=== PATIENT | female | born 1995 | race Hispanic/Latino ===

== ENCOUNTER 2018-05-06 12:14 | Emergency (ER) | payer OTHER ==
[~2018-05-06] VITALS: Ht 147.3 cm; Wt 59.0 kg
[2018-05-06 12:40] LABS: BASOPHILS % 0.3 % (0.0-1.0); EOSINOPHILS # (AUTO) 0.1 (0.0-0.4); EOSINOPHILS % 1.4 % (0.0-6.0); HEMOGLOBIN 13.3 g/dL (12.0-16.0); LYMPHOCYTES # (AUTO) 3.4 (1.0-3.2); LYMPHOCYTES % 46.2 % (18.0-39.1); MEAN CORPUSCULAR HEMOGLOBIN 30.2 pg (28-32); MEAN CORPUSCULAR HGB CONC 34.1 g/dL (31-35); MEAN CORPUSCULAR VOLUME 88.6 fL (81-99); MONOCYTES # (AUTO) 0.4 (0.2-0.8); MONOCYTES % 6.1 % (4.4-11.3); NEUTROPHILS # (AUTO) 3.3 (2.1-6.9); NEUTROPHILS % 45.9 % (38.7-80.0); PLATELET COUNT 188 x10e3/uL (140-360)
[2018-05-06 12:59] LABS: ALANINE AMINOTRANSFERASE 38 IU/L (0-55); ALBUMIN 3.1 g/dL (3.5-5.0); ALBUMIN/GLOBULIN RATIO 0.9 (0.8-2.0); ALKALINE PHOSPHATASE 71 IU/L (40-150); ANION GAP 12.7 mmol/L (8-16); BLOOD UREA NITROGEN 11 mg/dL (7-26); BUN/CREATININE RATIO 20 (6-25); CALCIUM 9.2 mg/dL (8.4-10.2); CARBON DIOXIDE 24 mmol/L (22-29); CHLORIDE 107 mmol/L (98-107); CREATININE, SERUM 0.55 mg/dL (0.57-1.11); EST GLOMERULAR FILTRATION RATE > 60 ML/MIN (60-); GLUCOSE 91 mg/dL (74-118); POTASSIUM 3.7 mmol/L (3.5-5.1); SODIUM 140 mmol/L (136-145)
[2018-05-06 13:13] LABS: CLARITY,URINE HAZY (CLEAR); COLOR,URINE YELLOW (YELLOW)
[2018-05-06 13:14] LABS: BILIRUBIN,URINE NEGATIVE (NEGATIVE); KETONES,URINE NEGATIVE (NEGATIVE); LEUKOCYTE ESTERASE ,URINE NEGATIVE (NEGATIVE); NITRITE,URINE NEGATIVE (NEGATIVE); PROTEIN,URINE DIPSTICK 2+ (NEGATIVE); URINE UROBILINOGEN 0.2 mg/dL (0.2 - 1)
[2018-05-06 13:28] LABS: BACTERIA,URINE MANY /HPF; EPITHELIAL CELLS,URINE FEW /LPF
--- NOTE | 2018-05-06 13:31 | Diagnostic Imaging Report ---
EXAMINATION: PA and lateral views of the chest. COMPARISON: None CLINICAL HISTORY: Shortness of breath DISCUSSION: Lines/tubes: None. Lungs: The lungs are well inflated and clear. No pneumonia or pulmonary edema. Pleura: No pleural effusion or pneumothorax. Heart and mediastinum: The cardiomediastinal silhouette is normal. Bones and soft tissues: No acute bony abnormalities. IMPRESSION: No acute cardiopulmonary abnormalities. Signed by: Dr. Stanislav Robles M.D. on 05/06/2018 1:28 PM
[2018-05-06 14:16] VITALS: BP 97/61
== END 2018-05-06 14:12 | disposition home or self-care (01) ==
LOC: ER 12:14
DX: R10.33 Periumbilical pain (principal); E88.09 Other disorders of plasma-protein metabolism, not elsewhere classified
CPT/HCPCS: 36415; 71046; 80053; 81001; 83880; 84702; 85025; 99284

== ENCOUNTER 2018-07-18 08:17 | Emergency (ER) | payer OTHER ==
[~2018-07-18] VITALS: Ht 147.3 cm; Wt 59.0 kg
--- OUTSIDE RECORDS SUMMARY | 2018-07-18 08:20 | XMS REPORT ---
Author Author [facility] Address Unknown Phone Unavailable Care Team Providers Care Cms Expert Name Role Phone Renetta CUEVAS Unavailable Unavailable Problems This patient has no known problems. Allergies, Adverse Reactions, Alerts This patient has no known allergies or adverse reactions. Medications This patient has no known medications. Results Test Description Test Time Test Comments Text Results Atomic Results Result Comments CHEST 2 VIEWS 2018-05-06 13:27:00 [place] [id number] Patient Name: JESSICA VERAS MR #: [id number] : 1995 Age/Sex: 22/F Req #: [id number] Adm Physician: Ordered by: MARTÍN GILLESPIE NP Report #: [id number] Location: ER Room/Bed: Procedure: [id number] DX/CHEST 2 VIEWS Exam Date: Exam Time: REPORT STATUS: Signed EXAMINATION: PA and lateral views of the chest. COMPARISON: None CLINICAL HISTORY: Shortness of breath DISCUSSION: Lines/tubes: None. Lungs: The lungs are well inflated and clear. No pneumonia or pulmonary edema. Pleura: No pleural effusion or pneumothorax. Heart and mediastinum: The cardiomediastinal silhouette is normal. Bones and soft tissues: No acute bony abnormalities. IMPRESSION: No acute cardiopulmonary abnormalities. Signed by: Dr. Farhat Fernandez M.D. on 05/06/2018 1:28 PM Dictated By: FARHAT FERNANDEZ MD [id number] Transcribed By: MICHELLE on 05/06/18 1328 COPY TO: MARTÍN GILLESPIE NP
[2018-07-18 09:21] LABS: BASOPHILS % 0.2 % (0.0-1.0); HEMATOCRIT 40.4 % (34.2-44.1); HEMOGLOBIN 13.7 g/dL (12.0-16.0); LYMPHOCYTES # (AUTO) 1.2 (1.0-3.2); LYMPHOCYTES % 19.2 % (18.0-39.1); MEAN CORPUSCULAR HEMOGLOBIN 30.2 pg (28-32); MEAN CORPUSCULAR HGB CONC 33.9 g/dL (31-35); MONOCYTES # (AUTO) 0.1 (0.2-0.8); MONOCYTES % 1.8 % (4.4-11.3); NEUTROPHILS # (AUTO) 4.8 (2.1-6.9); NEUTROPHILS % 78.3 % (38.7-80.0); PLATELET COUNT 193 x10e3/uL (140-360); RED BLOOD COUNT 4.54 x10e6/uL (3.6-5.1); RED CELL DISTRIBUTION WIDTH 12.6 % (11.7-14.4)
[2018-07-18 09:40] LABS: ALANINE AMINOTRANSFERASE 24 IU/L (0-55); ALBUMIN 1.6 g/dL (3.5-5.0); ALBUMIN/GLOBULIN RATIO 0.5 (0.8-2.0); ALKALINE PHOSPHATASE 80 IU/L (40-150); ANION GAP 10.8 mmol/L (8-16); BLOOD UREA NITROGEN 11 mg/dL (7-26); BUN/CREATININE RATIO 21 (6-25); CALCIUM 8.2 mg/dL (8.4-10.2); CARBON DIOXIDE 26 mmol/L (22-29); CHLORIDE 101 mmol/L (98-107); CREATININE, SERUM 0.52 mg/dL (0.57-1.11); EST GLOMERULAR FILTRATION RATE > 60 ML/MIN (60-); GLUCOSE 129 mg/dL (74-118); MAGNESIUM 1.4 MG/DL (1.3-2.1); PHOSPHORUS 4.6 MG/DL (2.3-4.7); POTASSIUM 3.8 mmol/L (3.5-5.1); SODIUM 134 mmol/L (136-145)
[2018-07-18] MEDS ORDERED: PREDNISONE20 MG PO (10:53)
[2018-07-18] MEDS ORDERED: BUMETANIDE1 MG PO (10:53)
[2018-07-18 11:23] LABS: CLARITY,URINE CLEAR (CLEAR); COLOR,URINE YELLOW (YELLOW)
[2018-07-18 11:24] LABS: KETONES,URINE NEGATIVE (NEGATIVE); LEUKOCYTE ESTERASE ,URINE NEGATIVE (NEGATIVE); NITRITE,URINE NEGATIVE (NEGATIVE); PROTEIN,URINE DIPSTICK 2+ (NEGATIVE); URINE UROBILINOGEN 0.2 mg/dL (0.2 - 1)
[2018-07-18 11:25] LABS: BILIRUBIN,URINE NEGATIVE (NEGATIVE)
[2018-07-18 11:35] LABS: BACTERIA,URINE MANY /HPF; EPITHELIAL CELLS,URINE FEW /LPF; MUCUS,URINE MANY (RARE)
== END 2018-07-18 12:57 | disposition home or self-care (01) ==
LOC: ER 08:17
DX: N04.9 Nephrotic syndrome with unspecified morphologic changes (principal)
CPT/HCPCS: 36415; 80053; 81001; 83735; 84100; 85025; 99284

== ENCOUNTER 2019-04-13 17:04 | Emergency (ER) | payer SELFPAY ==
[~2019-04-13 17:04] MED LIST: BUMETANIDE1 MG PO; PREDNISONE20 MG PO
--- OUTSIDE RECORDS SUMMARY | 2019-04-13 17:07 | XMS REPORT | Clinical Summary ---
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 08/22/2018 Discontinued (Stop Taking at Discharge) predniSONE (DELTASONE) 20 Take 10 mg by 0 mg tablet mouth 4 (four) times a day. 08/16/2018 Discontinued tretinoin (VESANOID) 10 Take by mouth 0 mg chemo capsule 2 (two) times a day. 08/22/2018 Discontinued (Stop Taking at Discharge) azithromycin (ZITHROMAX) Take 250 mg 0 250 MG tablet by mouth daily. Take 2 tablets the first day, then 1 tablet daily for 4 days. 09/21/2018 ondansetron ODT Take 1 tablet 30 tablet 0 (ZOFRAN-ODT) 4 MG (4 mg total) 9 disintegrating tablet by mouth every 8 (eight) hours as needed for nausea or vomiting for up to 30 days. 09/21/2018 atorvastatin (LIPITOR) 40 Take 1 tablet 30 tablet 0 MG tablet (40 mg total) 9 by mouth nightly for 30 days. 09/22/2018 cholestyramine (QUESTRAN) Take 1 packet 30 packet 0 4 gram packet by mouth 9 daily for 30 days. 09/22/2018 predniSONE (DELTASONE) 5 Take 5 150 tablet 0 mg tablet tablets (25 9 mg total) by mouth daily for 30 days. Active Problems Problem Noted Date Nephrotic syndrome 08/16/2018 Encounters Care Team Description Date Type Specialty Saeed Strickland MD ESOPHAGOGASTRODUODENOSCOPY (EGD) 08/18/2018 Surgery Gastroenterology Bhaskar Gonzalez MD 08/18/2018 Anesthesia Gastroenterology Event Pato Yuan NP-C Yerramadha, Muralidhar Reddy, MD Nephrotic syndrome (Primary Dx); Abdominal swelling; Acne vulgaris; Other acute gastritis without hemorrhage; Acute pancreatitis without infection or necrosis, unspecified pancreatitis type 08/15/2018 [facility] General Internal Medicine - Encounter 08/22/2018 after 04/12/2018 Social History Date Tobacco Use Types Packs/Day Years Used Never Smoker Smokeless Tobacco: Never Used Drinks/Week oz/Week Comments Alcohol Use No Alcohol Habits Answer Date Recorded How often do you have a drink containing alcohol? Never 08/16/2018 How many drinks containing alcohol do you have on Not asked a typical day when you are drinking? How often do you have six or more drinks on one Not asked occasion? Sex Assigned at Date Recorded Not on file Industry Job Start Date Occupation Not on file Not on file Not on file Travel End Travel History Travel Start No recent travel history available. Last Filed Vital Signs Reading Time Taken Comments Vital Sign 101/58 08/22/2018 4:19 PM DIGITAL STRATEGY MANAGER Blood Pressure 75 08/22/2018 4:19 PM DIGITAL STRATEGY MANAGER Pulse 35.6 C (96 F) 08/22/2018 4:19 PM DIGITAL STRATEGY MANAGER Temperature 16 08/22/2018 4:19 PM DIGITAL STRATEGY MANAGER Respiratory Rate 95% 08/22/2018 4:19 PM DIGITAL STRATEGY MANAGER Oxygen Saturation - - Inhaled Oxygen Concentration 66.7 kg (147 lb) 08/16/2018 7:45 PM DIGITAL STRATEGY MANAGER Weight 144.8 cm (4' 9") 08/16/2018 7:45 PM DIGITAL STRATEGY MANAGER Height 31.81 08/16/2018 7:45 PM DIGITAL STRATEGY MANAGER Body Mass Index Plan of Treatment Health Maintenance Due Date Last Done Comments CHLAMYDIA SCREENING 2012 CERVICAL CANCER SCREENING 2017 INFLUENZA VACCINE 03/09/2019 Procedures Comments Procedure Name Priority Date/Time Associated Diagnosis PROTEIN, URINE, RANDOM Routine 08/22/2018 3:48 PM DIGITAL STRATEGY MANAGER CREATININE LEVEL, URINE, Routine 08/22/2018 RANDOM 3:48 PM DIGITAL STRATEGY MANAGER ESTIMATED GFR Routine 08/22/2018 5:42 AM DIGITAL STRATEGY MANAGER PHOSPHORUS LEVEL Routine 08/22/2018 5:42 AM DIGITAL STRATEGY MANAGER MAGNESIUM LEVEL Routine 08/22/2018 5:42 AM DIGITAL STRATEGY MANAGER HC COMPLETE BLD COUNT Routine 08/22/2018 W/AUTO DIFF 5:42 AM DIGITAL STRATEGY MANAGER BASIC METABOLIC PANEL Routine 08/22/2018 5:42 AM DIGITAL STRATEGY MANAGER US NEEDLE BIOPSY Routine 08/19/2018 12:01 PM DIGITAL STRATEGY MANAGER SURGICAL PATHOLOGY Routine 08/19/2018 REQUEST 11:20 AM DIGITAL STRATEGY MANAGER ESTIMATED GFR Routine 08/19/2018 4:56 AM DIGITAL STRATEGY MANAGER BASIC METABOLIC PANEL Routine 08/19/2018 4:56 AM DIGITAL STRATEGY MANAGER HC COMPLETE BLD COUNT Routine 08/19/2018 W/AUTO DIFF 4:56 AM DIGITAL STRATEGY MANAGER PROTHROMBIN TIME WITH INR Routine 08/19/2018 4:56 AM DIGITAL STRATEGY MANAGER PARTIAL THROMBOPLASTIN Routine 08/19/2018 TIME (PTT) 4:56 AM DIGITAL STRATEGY MANAGER SURGICAL PATHOLOGY Routine 08/18/2018 REQUEST 2:06 PM DIGITAL STRATEGY MANAGER ESOPHAGOGASTRODUODENOSCOP 08/18/2018 ABDOMINAL PAIN Y (EGD) 2:02 PM DIGITAL STRATEGY MANAGER ESTIMATED GFR Routine 08/18/2018 4:24 AM DIGITAL STRATEGY MANAGER LIPASE LEVEL Routine 08/18/2018 4:24 AM DIGITAL STRATEGY MANAGER HC COMPLETE BLD COUNT Routine 08/18/2018 W/AUTO DIFF 4:24 AM DIGITAL STRATEGY MANAGER COMPREHENSIVE METABOLIC Routine 08/18/2018 PANEL 4:24 AM DIGITAL STRATEGY MANAGER PROTEIN, URINE, RANDOM Routine 08/17/2018 9:52 AM DIGITAL STRATEGY MANAGER CREATININE LEVEL, URINE, Routine 08/17/2018 RANDOM 9:52 AM DIGITAL STRATEGY MANAGER SODIUM LEVEL, URINE, Routine 08/17/2018 RANDOM 9:52 AM DIGITAL STRATEGY MANAGER ESTIMATED GFR Routine 08/17/2018 6:12 AM DIGITAL STRATEGY MANAGER LIPASE LEVEL Routine 08/17/2018 6:12 AM DIGITAL STRATEGY MANAGER HC COMPLETE BLD COUNT Routine 08/17/2018 W/AUTO DIFF 6:12 AM DIGITAL STRATEGY MANAGER COMPREHENSIVE METABOLIC Routine 08/17/2018 PANEL 6:12 AM DIGITAL STRATEGY MANAGER US ABDOMEN COMPLETE Routine 08/17/2018 6:01 AM DIGITAL STRATEGY MANAGER ECG ED PRELIMINARY Routine 08/16/2018 INTERPRETATION 11:31 PM DIGITAL STRATEGY MANAGER US RENAL Routine 08/16/2018 4:44 PM DIGITAL STRATEGY MANAGER DNA AB SCREEN Routine 08/16/2018 11:34 AM DIGITAL STRATEGY MANAGER COMPLEMENT ACTIVITY, Routine 08/16/2018 TOTAL 11:34 AM DIGITAL STRATEGY MANAGER C4 COMPLEMENT COMPONENT Routine 08/16/2018 11:34 AM DIGITAL STRATEGY MANAGER C3 COMPLEMENT COMPONENT Routine 08/16/2018 11:34 AM DIGITAL STRATEGY MANAGER ANAMIKA Routine 08/16/2018 11:34 AM DIGITAL STRATEGY MANAGER PARTIAL THROMBOPLASTIN Routine 08/16/2018 TIME (PTT) 11:34 AM DIGITAL STRATEGY MANAGER PROTHROMBIN TIME WITH INR Routine 08/16/2018 11:34 AM DIGITAL STRATEGY MANAGER ESTIMATED GFR Routine 08/16/2018 6:20 AM DIGITAL STRATEGY MANAGER COMPREHENSIVE METABOLIC Routine 08/16/2018 PANEL 6:20 AM DIGITAL STRATEGY MANAGER HC COMPLETE BLD COUNT Routine 08/16/2018 W/AUTO DIFF 6:20 AM DIGITAL STRATEGY MANAGER URINALYSIS SCREEN AND Routine 08/16/2018 MICROSCOPY, WITH REFLEX 12:21 AM DIGITAL STRATEGY MANAGER TO CULTURE ECG 12-LEAD STAT 08/15/2018 11:06 PM DIGITAL STRATEGY MANAGER LIPID PANEL STAT 08/15/2018 11:00 PM DIGITAL STRATEGY MANAGER ESTIMATED GFR STAT 08/15/2018 10:55 PM DIGITAL STRATEGY MANAGER LIPASE LEVEL STAT 08/15/2018 10:55 PM DIGITAL STRATEGY MANAGER HCG QUALITATIVE, SERUM STAT 08/15/2018 SCREEN 10:55 PM DIGITAL STRATEGY MANAGER B NATRIURETIC PEPTIDE STAT 08/15/2018 10:55 PM DIGITAL STRATEGY MANAGER TROPONIN STAT 08/15/2018 10:55 PM DIGITAL STRATEGY MANAGER CREATINE KINASE, TOTAL STAT 08/15/2018 (CPK) 10:55 PM DIGITAL STRATEGY MANAGER COMPREHENSIVE METABOLIC STAT 08/15/2018 PANEL 10:55 PM DIGITAL STRATEGY MANAGER HC COMPLETE BLD COUNT STAT 08/15/2018 W/AUTO DIFF 10:55 PM DIGITAL STRATEGY MANAGER XR CHEST 1 VW PORTABLE STAT 08/15/2018 10:13 PM DIGITAL STRATEGY MANAGER after 04/12/2018 Results * Protein, urine, random (08/22/2018 3:48 PM DIGITAL STRATEGY MANAGER) Only the most recent of 2 results within the time period is included. Protein, urine 177 mg/dL [facility] Specimen Urine Performing Organization Address [facility] Cent[facility] Phone Number [address] [place] [address] PATHOLOGY AND GENOMIC MEDICINE [address] * Creatinine level, urine, random (08/22/2018 3:48 PM DIGITAL STRATEGY MANAGER) Only the most recent of 2 results within the time period is included. Creatinine, 21 mg/dL [place] urine, [facility] Specimen Urine Performing Organization Address City/[facility] Cent[facility]ode Phone Number [facility] DEPARTMENT [id number] [place] [address] [place] [address] PATHOLOGY AND GENOMIC MEDICINE [address] * Estimated GFR (08/22/2018 5:42 AM DIGITAL STRATEGY MANAGER) Only the most recent of 6 results within the time period is included. Pathologist [facility] Estimated GFR >=90 mL/min/1.73 m2 [place] Comment: [facility] rpretation G1 >=90 Normal or high G2 60-89Mildly decreased [id number] Mildly to moderately decreased C3w16-99 Moderately to severely decreased G4 15-29Severely decreased G5 <15Kidney failure The eGFR was calculated using the Chronic Kidney Disease Epidemiology Collaboration (CKD-EPI) equation. Interpretation is based on recommendations of the National Kidney Foundation-Kidney Disease Outcomes Quality Initiative (NKF-KDOQI) published in 2014. Specimen Plasma specimen Performing Organization Address City/State/Zipcode Phone Number [facility] DE[place]MENT [place] [id number] [place] [address] [place] [address] PATHOLOGY AND GENOMIC MEDICINE [facility] [address] [place] [address] * CBC with platelet and differential (08/22/2018 5:42 AM DIGITAL STRATEGY MANAGER) Only the most recent of 6 results within the time period is included. Pathologist [facility] WBC 11.72 (H) 4.50 - 11.00 k/uL [facility] RBC 4.06 (L) 4.20 - 5.50 m/uL [facility] HGB 12.3 12.0 - 16.0 g/dL [facility] HCT 36.4 (L) 37.0 - 47.0 % [facility] MCV 89.7 82.0 - 100.0 fL [facility] MCH 30.3 27.0 - 34.0 pg [facility] MCHC 33.8 31.0 - 37.0 g/dL [facility] RDW - SD 40.4 37.0 - 55.0 fL [facility] MPV 11.3 8.8 - 13.2 fL [facility] Platelet count 303 150 - 400 k/uL [facility] Nucleated RBC 0.00 /100 WBC [facility] Neutrophils 45.9 39.0 - 69.0 % [facility] Lymphocytes 46.2 (H) 25.0 - 45.0 % [facility] Monocytes 6.1 0.0 - 10.0 % [facility] Eosinophils 1.2 0.0 - 5.0 % [facility] Basophils 0.3 0.0 - 1.0 % [facility] Specimen Blood Performing Organization Address [facility] Centercode Phone Number [address] [place] [address] PATHOLOGY AND [facility] MEDICINE [address] * Phosphorus level (08/22/2018 5:42 AM DIGITAL STRATEGY MANAGER) Pathologist [facility] Phosphorus 3.0 2.4 - 4.5 mg/dL [facility] Specimen Plasma specimen Performing Organization Address [facility] Phone Number [address] [place] [address] PATHOLOGY AND GENOMIC MEDICINE [address] * Magnesium level (08/22/2018 5:42 AM DIGITAL STRATEGY MANAGER) Magnesium 1.7 1.6 - 2.6 mg/dL [facility] Specimen Plasma specimen Performing Organization Address [facility] Phone Number [address] [place] [address] PATHOLOGY AND [facility] MEDICINE [address] * Basic metabolic panel (08/22/2018 5:42 AM DIGITAL STRATEGY MANAGER) Only the most recent of 2 results within the time period is included. Sodium 136 135 - 148 mEq/L [facility] Potassium 3.1 (L) 3.5 - 5.0 mEq/L [facility] Chloride 98 98 - 112 mEq/L [facility] CO2 33 (H) 24 - 31 mEq/L [facility] Anion gap 5@ANIO (L) 7 - 15 mEq/L [facility] BUN 14 6 - 20 mg/dL [facility] Creatinine 0.60 0.50 - 0.90 mg/dL [facility] Glucose 92 65 - 99 mg/dL [facility] Calcium 8.1 (L) 8.3 - 10.2 mg/dL [facility] Specimen Plasma specimen Performing Organization Address City/State/Zipcode [place] [address] [place] [address] PATHOLOGY AND GENOMIC MEDICINE [facility] [address] [place] [address] [facility] * US Needle Biopsy (08/19/2018 12:01 PM DIGITAL STRATEGY MANAGER) Specimen Narrative Performed At EXAMINATION:US NEEDLE BIOPSY [facility] CLINICAL HISTORY:Nephrotic Syndrome TECHNIQUE: The risks, benefits, and alternatives were discussed with the patient and written informed consent was obtained. A site for needle entry was selected over the flank to access the right lower renal pole, and the skin was prepped and draped in the usual sterile fashion. Local administration of 1% buffered lidocaine was used for local anesthesia. Using ultrasound guidance, 2 core samples were obtained from the lower pole cortex of the right kidney using an 18-gauge core biopsy needle. The specimens were reviewed with pathology and were deemed adequate. Conscious sedation: 3 mg of IV Versed and 150 mcg of IV fentanyl. Total intraservice sedation time 18 minutes. The patient was monitored throughout the procedure and in the postprocedure recovery area. EBL: None. Complications: None. Assistants: None. IMPRESSION: Technically successful medical right renal biopsy under ultrasound guidance. [id number] Procedure Note Hm Interface, Radiology Results Incoming - 08/19/2018 12:23 PM DIGITAL STRATEGY MANAGER EXAMINATION: US NEEDLE BIOPSY CLINICAL HISTORY: Nephrotic Syndrome TECHNIQUE: The risks, benefits, and alternatives were discussed with the patient and written informed consent was obtained. A site for needle entry was selected over the flank to access the right lower renal pole, and the skin was prepped and draped in the usual sterile fashion. Local administration of 1% buffered lidocaine was used for local anesthesia. Using ultrasound guidance, 2 core samples were obtained from the lower pole cortex of the right kidney using an 18-gauge core biopsy needle. The specimens were reviewed with pathology and were deemed adequate. Conscious sedation: 3 mg of IV Versed and 150 mcg of IV fentanyl. Total intraservice sedation time 18 minutes. The patient was monitored throughout the procedure and in the postprocedure recovery area. EBL: None. Complications: None. Assistants: None. IMPRESSION: Technically successful medical right renal biopsy under ultrasound guidance. [id number] Performing Organization Address City/State/Zipcode Phone Number [facility] [address] [place] [id number] * Surgical pathology request (08/19/2018 11:20 AM DIGITAL STRATEGY MANAGER) Only the most recent of 2 results within the time period is included. [facility] DEPARTMENT OF PATHOLOGY AND GENOMIC MEDICINE Surgical See link below for PDF Lab [facility] pathology Report DEPARTMENT OF report PATHOLOGY AND GENOMIC MEDICINE Result status This is Final Report for [facility] [id number] DEPARTMENT OF PATHOLOGY AND GENOMIC MEDICINE Specimen Performing Organization Address [facility] Phone Number [address] [place] [address] PATHOLOGY AND [facility] MEDICINE * Partial thromboplastin time, activated (08/19/2018 4:56 AM DIGITAL STRATEGY MANAGER) Only the most recent of 2 results within the time period is included. Pathologist [facility] PTT 30.6 23.0 - 36.0 sec [place] Comment: JENN NGUYEN PTT therapeutic range for [facility] unfractionated heparin is 61.0-112.0 seconds which corresponds to Anti-Xa 0.3-0.7 U/ml. Specimen Blood Performing Organization Address [facility] Phone Number [address] [place] * Prothrombin time with INR (08/19/2018 4:56 AM DIGITAL STRATEGY MANAGER) Only the most recent of 2 results within the time period is included. Pathologist [facility] Prothrombin 13.1 11.5 - 14.5 sec [facility] INR 1.0 [place] Comment: JENN NGUYEN The International Normalized [facility] Ratio (INR) is a therapeutic monitoring tool for patients who are stable on oral anticoagulant therapy. An INR of 2.0-3.0 is suggested for deep vein thrombosis/pulmonary embolism. Specimen Blood Performing Organization Address [facility] Phone Number [facility] DEPARTMENT [address] [place] [address] PATHOLOGY AND GENOMIC MEDICINE [facility] [address] [place] [address] * Lipase level (08/18/2018 4:24 AM DIGITAL STRATEGY MANAGER) Only the most recent of 3 results within the time period is included. [facility] Lipase 88 (H) 13 - 60 U/L [facility] Specimen Plasma specimen Performing Organization Address City/State/Zipcode Phone Number [facility] [address] [place] [address] PATHOLOGY AND GENOMIC MEDICINE [address] * Comprehensive metabolic panel (08/18/2018 4:24 AM DIGITAL STRATEGY MANAGER) Only the most recent of 4 results within the time period is included. [facility] Sodium 135 135 - 148 mEq/L [facility] Potassium 3.6 3.5 - 5.0 mEq/L [facility] Chloride 100 98 - 112 mEq/L [facility] CO2 29 24 - 31 mEq/L [facility] Anion gap 6@ANIO (L) 7 - 15 mEq/L [facility] BUN 26 (H) 6 - 20 mg/dL [facility] Creatinine 0.50 0.50 - 0.90 mg/dL [facility] Glucose 101 (H) 65 - 99 mg/dL [facility] Calcium 7.8 (L) 8.3 - 10.2 mg/dL [facility] Protein 4.1 (L) 6.3 - 8.3 g/dL [place] Comment: [facility] 4.6-7.0 g/dL 1 week 4.4-7.6 g/dL 7 months-1year 5.1-7.3 g/dL 1-2 years5.6-7 .5 g/dL >3 years6.0-8 .0 g/dL 18-150 6.3-8.3 g/dL Albumin 1.4 (L) 3.5 - 5.0 g/dL [facility] A/G ratio 0.5 (L) 0.7 - 3.8 [facility] Alkaline 63 35 - 104 U/L [place] phosphatase [facility] [place] AST 14 10 - 35 U/L [facility] ALT 10 5 - 50 U/L [facility] Total bilirubin 0.2 0.0 - 1.2 mg/dL [facility] Specimen Plasma specimen Performing Organization Address City/[facility] Phone Number [facility] [id number] [place] [address] [place] [address] PATHOLOGY AND GENOMIC MEDICINE [address] * Sodium level, urine, random (08/17/2018 9:52 AM DIGITAL STRATEGY MANAGER) Sodium, urine, <20 mEq/L [place] random [facility] [place] Specimen Urine Performing Organization Address [facility] Phone Number [address] [place] [address] PATHOLOGY AND GENOMIC MEDICINE [address] * US Abdomen Complete (08/17/2018 6:01 AM DIGITAL STRATEGY MANAGER) Specimen Narrative Performed At EXAM: US ABDOMEN COMPLETE [facility] CLINICAL DATA:Abd pain COMPARISON: Renal ultrasound 08/16/2018 at 1615 hours. IMPRESSION: 1.No identifiable cause of abdominal pain. 2.Trace ascites. 3.Nonspecific gallbladder wall thickening. 4.Mild increased renal cortical echogenicity suggestive of chronic medical renal disease. FINDINGS: LIVER:Normal in size and echogenicity. No mass or ductal dilatation identified. GALLBLADDER:Nondistended and without stones or sludge. Mild diffuse wall thickening measuring 7 mm and trace pericholecystic edema are nonspecific findings in the absence of gallbladder dilatation and stones. COMMON DUCT:Normal within the michelle hepatis measuring, 2 mm. PANCREAS:Unremarkable, although portions are obscured by shadowing. SPLEEN: Normal in size measuring, 10.8 x 4.4 x 4.1 cm. KIDNEYS: Normal in position and size. Renal cortical echogenicity is mildly increased. Right kidney measures 11.0 x 6.3 x 5.5 cm. Left kidney measures 11.4 x 5.8 x 5.0 cm. No mass, calculus, or hydronephrosis identified. AORTA:Visualized aorta is nonaneurysmal. IVC:Visualized inferior vena cava is unremarkable. PORTAL VEIN: Normal in diameter measuring 0.9 cm and patent with normal hepatopetal flow. ASCITES: Trace ascites. PLEURAL EFFUSION:No appreciable pleural effusion. Thank you for allowing us to participate in the care of your patient. [facility]-[id number] Procedure Note Interface, Radiology Results Incoming - 08/17/2018 7:14 AM DIGITAL STRATEGY MANAGER EXAM: US ABDOMEN COMPLETE CLINICAL DATA: Abd pain COMPARISON: Renal ultrasound 08/16/2018 at 1615 hours. IMPRESSION: 1. No identifiable cause of abdominal pain. 2. Trace ascites. 3. Nonspecific gallbladder wall thickening. 4. Mild increased renal cortical echogenicity suggestive of chronic medical renal disease. FINDINGS: LIVER: Normal in size and echogenicity. No mass or ductal dilatation identified. GALLBLADDER: Nondistended and without stones or sludge. Mild diffuse wall thickening measuring 7 mm and trace pericholecystic edema are nonspecific findings in the absence of gallbladder dilatation and stones. COMMON DUCT: Normal within the michelle hepatis measuring, 2 mm. PANCREAS: Unremarkable, although portions are obscured by shadowing. SPLEEN: Normal in size measuring, 10.8 x 4.4 x 4.1 cm. KIDNEYS: Normal in position and size. Renal cortical echogenicity is mildly increased. Right kidney measures 11.0 x 6.3 x 5.5 cm. Left kidney measures 11.4 x 5.8 x 5.0 cm. No mass, calculus, or hydronephrosis identified. AORTA: Visualized aorta is nonaneurysmal. IVC: Visualized inferior vena cava is unremarkable. PORTAL VEIN: Normal in diameter measuring 0.9 cm and patent with normal hepatopetal flow. ASCITES: Trace ascites. PLEURAL EFFUSION: No appreciable pleural effusion. Thank you for allowing us to participate in the care of your patient. [facility]-[id number] Performing Organization Address City/State/Zipcode Phone Number [facility] [address] [place] [address] * ECG ED Preliminary Interpretation - Not an Order (08/16/2018 11:31 PM DIGITAL STRATEGY MANAGER) Narrative Performed At Eugene Solomon MD 08/18/20187:16 AM ECG ED Preliminary Interpretation - Not an Order Performed by: Pato Yuan NP-C Authorized by: Pato Yuan NP-C ECG reviewed by ED Physician in the absence of a cat scan tech: yes Previous ECG: Previous ECG:Unavailable Interpretation: Interpretation: normal Rate: ECG rate:85 ECG rate assessment: normal Rhythm: Rhythm: sinus rhythm Ectopy: Ectopy: none QRS: QRS axis:Normal QRS intervals:Normal ST segments: ST segments:Normal T waves: T waves: normal * US Renal (08/16/2018 4:44 PM DIGITAL STRATEGY MANAGER) Specimen Narrative Performed At [facility]AMINATION[facility] H[facility]:Abnormal findings in urine, Proteinuria COMPARISON:None. TECHNIQUE:Ultrasound evaluation of the kidneys and bladder. IMPRESSION: 1.The right kidney measures 10.8 x 5.2 x 5.4 cm.The left kidney measures 12.0 x 6.8 x 5.1 cm.Bilateral increased renal cortical echogenicity is compatible with renal parenchymal disease. 2.No hydronephrosis or solid mass lesions. 3.Bladder is unremarkable. 4.There is a small trace to mild amount of ascites. [facility]-[id number] Procedure Note Interface, Radiology Results Incoming - 08/16/2018 4:55 PM DIGITAL STRATEGY MANAGER EXAMINATION: US RENAL CLINICAL HISTORY: Abnormal findings in urine, Proteinuria COMPARISON: None. TECHNIQUE: Ultrasound evaluation of the kidneys and bladder. IMPRESSION: 1. The right kidney measures 10.8 x 5.2 x 5.4 cm. The left kidney measures 12.0 x 6.8 x 5.1 cm. Bilateral increased renal cortical echogenicity is compatible with renal parenchymal disease. 2. No hydronephrosis or solid mass lesions. 3. Bladder is unremarkable. 4. There is a small trace to mild amount of ascites. [facility]-[id number] Performing Organization Address City/[facility]/Zipcode Phone Number [facility] [address] [place] [address] * DNA Ab screen (08/16/2018 11:34 AM DIGITAL STRATEGY MANAGER) Pathologist [facility] DNA Ab screen Not Detected Not-Detected [facility] Specimen Blood Performing Organization Address City/State/Zipcode Phone Number [facility] DEPARTMENT OF [address] [place] [address] PATHOLOGY AND GENOMIC MEDICINE [address] * Complement activity, total (08/16/2018 11:34 AM DIGITAL STRATEGY MANAGER) Complement 54 (L) 60 - 144 [facility] activity, total Comment: If low CH50 value is unexpected or does not correlate with the patient's clinical condition, repeat analysis with a fresh frozen serum sample is suggested for verification. INTERPRETIVE INFORMATION: Complement Activity, Total EIA 59 CAEUnits or less .......... Low 60-144CAE Units .............. Normal 145 Units or greater ....... High Performed by [employer] [facility], [address] [place] [address] [email or web address], Haja Carnes MD - Lab. Director Specimen Serum Performing Organization Address [facility] Centercode Phone Number [facility] [address] [place] [address] [facility] [address] [place] [address] * C3 complement component (08/16/2018 11:34 AM DIGITAL STRATEGY MANAGER) [facility] C3 complement 185 (H) 90 - 180 mg/dL [facility] Specimen Plasma specimen Performing Organization Address City/[facility] Centercode Phone Number [facility] [place] [address] PATHOLOGY AND [facility] MEDICINE [address] * C4 complement component (08/16/2018 11:34 AM DIGITAL STRATEGY MANAGER) [facility] C4 complement 67 (H) 10 - 40 mg/dL [facility] Specimen Plasma specimen Performing Organization Address [facility] Centercode Phone Number [facility] [place] [address] PATHOLOGY AND [facility] MEDICINE [address] * ANAMIKA (08/16/2018 11:34 AM DIGITAL STRATEGY MANAGER) [facility] ANAMIKA screen Negative Negative [facility] Specimen Blood Performing Organization Address [facility] Centercode Phone Number [facility] [place] [address] PATHOLOGY AND [facility] MEDICINE [address] * Urinalysis screen and microscopy, with reflex to culture (08/16/2018 12:21 AM DIGITAL STRATEGY MANAGER) Pathologist [facility] Specimen site Clean catch [facility] Color, UA Yellow [facility] Appearance, UA Slightly-Cloudy [facility] Specific 1.033 1.001 - 1.035 [place] gravity, UA [facility] pH, UA 6.0 5.0 - 8.5 [facility] Protein, UA 3+ (A) Negative [facility] Glucose, UA Negative Negative [facility] Ketones, UA Negative Negative [facility] Bilirubin, UA Negative Negative [facility] Blood, UA Negative Negative [facility] Nitrite, UA Negative Negative [facility] Urobilinogen, Negative <2.0 [facility] Leukocyte Negative Negative [place] esterase, UA [facility] [place] Epithelial Many /HPF [place] cells, UA [facility] [place] Round Moderate 0 - 1 /HPF [place] epithelial [facility]. cells, [facility] WBC, UA 6-10 (H) 0 - 4 /HPF [facility] RBC, UA 0-5 0 - 5 /HPF [facility] Bacteria, UA Trace None seen [facility] Yeast, UA None seen [facility] Yeast with None seen [place] [facility] Specimen Urine Performing Organization Address City/State/Zipcode Phone Number [facility] [place] [id number] [place] [address] [place] [address] PATHOLOGY AND GENOMIC MEDICINE [facility] [id number] [place] [address] [place] [address] [facility] * ECG 12 lead (08/15/2018 11:06 PM DIGITAL STRATEGY MANAGER) Ventricular 85 [facility] rate Atrial rate 85 [facility] [place] interval 154 [facility] QRSD interval 68 [facility] QT interval 354 [facility] QTC interval 421 [facility] P axis 1 44 [facility] QRS axis 1 61 [facility] T wave axis 12 [facility] MUSE EKG impression Normal sinus [facility] MUSE rhythm-Nonspecific T wave abnormality-Abnormal ECG-No previous ECGs available- Specimen Narrative Performed At Performing Organization Address City/State/Zipcode Phone Number [facility] [address] [place] [address] * Lipid panel (08/15/2018 11:00 PM DIGITAL STRATEGY MANAGER) [facility] Cholesterol 480 (H) <200 mg/dL [facility] Triglycerides 415 (A) <150 mg/dL [facility] HDL cholesterol 80 >40 mg/dL [facility] LDL cholesterol 378 (H)Comment: Result <100 mg/dL [place] obtained by direct LDL [facility] Lipid panel SeeBelow [place] interpretation Comment: [facility] Total Cholesterol [facility] (mg/dL) <200 Desirable 200-239Borderline -high >=240High Triglycerides (mg/dL) <150 Normal 150-199Borderline -high 200-499High >=500Very high HDL Cholesterol (mg/dL) <40Low (male) <40Low (female) LDL Cholesterol (mg/dL) <100 Optimal 100-129Near or above optimal 130-159Borderline -high 160-189High >=190Very high Risk Catergories that modify LDL goals. Risk Catergories LDL goal (mg/dL) CHD and CHD risk equivalent<100 (10-year risk >20%) Multiple (2+) risk factors <130 (10-year risk=<20%) 0-1 risk factors <160 (<10-year risk) Defining levels of lipids in metabolic syndrome Triglycerides >=150 mg/dL HDL Cholesterol Men <40 mg/dL Women <40 mg/dL Non-HDL cholesterol is a second target for therapy in persons with high triglycerides (>=200 mg/dL) Specimen Plasma specimen Performing Organization Address City/State/Zipcode [place] [address] [place] [address] PATHOLOGY AND GENOMIC MEDICINE [facility] [address] [place] [address] [facility] * Troponin (08/15/2018 10:55 PM DIGITAL STRATEGY MANAGER) [facility] Troponin <0.300 0.000 - 0.300 ng/mL [place] Comment: [facility] 0.30 - 1.49 [facility] ng/mlMay indicate increased risk of acute coronary syndrome. >=1.5 ng/ml Consistent with acute myocardial infarction. The diagnostic value of a single normal or non-diagnostic result is questionable.Serial samples at 2-6 hour intervals are required to rule out acute myocardial injury. Specimen Plasma specimen Performing Organization Address [facility] Centercode Phone Number [facility] DEPARTMENT [address] [place] [address] PATHOLOGY AND GENOMIC MEDICINE [address] * hCG qualitative, serum screen (08/15/2018 10:55 PM DIGITAL STRATEGY MANAGER) hCG Negative [place] qualitative, Comment: [facility] serum lot [id number] [facility] exp. 8-20 control valid Specimen Blood Performing Organization Address [facility] Phone Number [facility] DEPARTMENT [address] [place] [address] PATHOLOGY AND GENOMIC MEDICINE [address] * B natriuretic peptide (08/15/2018 10:55 PM DIGITAL STRATEGY MANAGER) Pathologist [facility] BNP 7 0 - 100 pg/mL [facility] Specimen Blood Performing Organization Address [facility] Phone Number [address] [place] [address] PATHOLOGY AND GENOMIC MEDICINE [address] * Creatine kinase, total (CPK) (08/15/2018 10:55 PM DIGITAL STRATEGY MANAGER) Creatine kinase 78 26 - 192 U/L [facility] Specimen Plasma specimen Performing Organization Address [facility] Centercomt Phone Number [address] [place] [address] PATHOLOGY AND GENOMIC MEDICINE [address] * XR Chest 1 Vw Portable (08/15/2018 10:13 PM DIGITAL STRATEGY MANAGER) Specimen Narrative Performed At EXAMINATION:XR CHEST 1 VW PORTABLE [facility] CLINICAL HISTORY:chest pain COMPARISON:None IMPRESSION: 1.Lungs are clear and the heart size is normal. 2.The vessels are not congested. There are no pleural effusions. [id number] Procedure Note Hm Interface, Radiology Results Incoming - 08/15/2018 10:28 PM DIGITAL STRATEGY MANAGER EXAMINATION: XR CHEST 1 VW PORTABLE CLINICAL HISTORY: chest pain COMPARISON: None IMPRESSION: 1. Lungs are clear and the heart size is normal. 2. The vessels are not congested. There are no pleural effusions. [id number] Performing Organization Address City/State/Zipcode Phone Number [facility] [address] [place] [address] after 04/12/2018 Insurance Type Payer Benefit Subscriber ID Effective Phone Address Plan / Dates Group HMO/PPO [facility] xxxxxxxxx [id number] THCARE resent CHOICE/CHO ICE + Advance Directives For more information, please contact: [phone] Patient Editor House Organ Explanation Type Date Recorded Advance Directives, Living Will and Medical Power of Operations Intelligence Superintendent
--- OUTSIDE RECORDS SUMMARY | 2019-04-13 17:08 | XMS REPORT | Clinical Summary ---
Author Author DAYANARA edulioSt. Luke'S Wood River Medical CenterChoozOn (d.b.a. [facility]) [facility] Address Unknown Phone Unavailable Care Team Providers Care Felled Seam Operator Chainstitch Name Role Phone Lou Hendrixrichardsunday PCP Allergies Comments Active Allergy Reactions Severity Noted Date Cephalosporins 07/21/2018 Furosemide Swelling 07/21/2018 Penicillins 07/21/2018 Medications Not on file Active Problems Not on file Encounters Care Team Description Date Type Specialty Rj Urena MD Edema, unspecified type (Primary Dx); Nephrotic syndrome; Hypoalbuminemia 07/21/2018 Emergency Emergency Medicine 07/21/2018 Orders Only General Internal Medicine after 04/12/2018 Social History Date Tobacco Use Types Packs/Day Years Used Never Assessed Sex Assigned at Date Recorded Not on file Industry Job Start Date Occupation Not on file Not on file Not on file Travel End Travel History Travel Start No recent travel history available. Last Filed Vital Signs Time Taken Vital Sign Reading 07/21/2018 8:04 PM AIR BRAKE ADJUSTER Blood Pressure 100/51 07/21/2018 8:04 PM AIR BRAKE ADJUSTER Pulse 83 07/21/2018 8:04 PM AIR BRAKE ADJUSTER Temperature 37 C (98.6 F) 07/21/2018 8:04 PM AIR BRAKE ADJUSTER Respiratory Rate 16 07/21/2018 5:32 PM AIR BRAKE ADJUSTER Oxygen Saturation 99% - Inhaled Oxygen - Concentration 07/21/2018 3:06 PM AIR BRAKE ADJUSTER Weight 62.1 kg (137 lb) 07/21/2018 3:06 PM AIR BRAKE ADJUSTER Height 147.3 cm (4' 10") 07/21/2018 3:06 PM AIR BRAKE ADJUSTER Body Mass Index 28.63 Plan of Treatment Not on file Procedures Comments Procedure Name Priority Date/Time Associated Diagnosis REPORT OF PROCEDURE - 10/07/2018 ENDOSCOPY SCAN 3:33 PM AIR BRAKE ADJUSTER ECG 12-LEAD Routine 07/21/2018 5:31 PM AIR BRAKE ADJUSTER Procedure Note - Interface, External Ris In - 07/21/2018 9:25 PM AIR BRAKE ADJUSTER Ventricula r Rate 81 BPM Atrial Rate 81 BPM P-R Interval 148 ms QRS Duration 80 ms Q-T Interval 340 ms QTC Calculatio n(Bazett) 394 ms P Hutchinson 66 degrees R Hutchinson 86 degrees T Hutchinson 39 degrees Normal sinus rhythm Normal ECG No previous ECGs available ECG 12-LEAD STAT 07/21/2018 5:31 PM AIR BRAKE ADJUSTER XR CHEST 2 VIEWS STAT 07/21/2018 5:09 PM AIR BRAKE ADJUSTER CBC W/PLT COUNT & AUTO STAT 07/21/2018 DIFFERENTIAL 5:00 PM AIR BRAKE ADJUSTER SCREEN, URINE STAT 07/21/2018 5:00 PM AIR BRAKE ADJUSTER URINALYSIS W/ REFLEX STAT 07/21/2018 URINE CULTURE 5:00 PM AIR BRAKE ADJUSTER COMPREHENSIVE METABOLIC STAT 07/21/2018 PANEL 5:00 PM AIR BRAKE ADJUSTER CBC W/PLT COUNT & AUTO STAT 07/21/2018 DIFFERENTIAL 5:00 PM AIR BRAKE ADJUSTER after 04/12/2018 Results * EKG-SCANNED (10/07/2018 3:33 PM AIR BRAKE ADJUSTER) Narrative Performed At * ECG 12 lead (07/21/2018 5:31 PM AIR BRAKE ADJUSTER) Specimen Narrative Performed At Ventricular Rate 81 BPM GE MUSE Atrial Rate 81 BPM P-R Interval 148 ms QRS Duration 80 ms Q-T Interval 340 ms QTC Calculation(Bazett) 394 ms P Hutchinson 66 degrees R Hutchinson 86 degrees T Hutchinson 39 degrees Normal sinus rhythm Normal ECG No previous ECGs available Confirmed by Saira WADSWORTH MICHAEL ([id number]) on 07/22/2018 7:30:16 AM Procedure Note Interface, External Ris In - 07/22/2018 7:30 AM AIR BRAKE ADJUSTER Ventricular Rate 81 BPM Atrial Rate 81 BPM P-R Interval 148 ms QRS Duration 80 ms Q-T Interval 340 ms QTC Calculation(Bazett) 394 ms P Hutchinson 66 degrees R Hutchinson 86 degrees T Hutchinson 39 degrees Normal sinus rhythm Normal ECG No previous ECGs available Confirmed by Saira WADSWORTH MICHAEL ([id number]) on 07/22/2018 7:30:16 AM Performing Organization Address [facility] Hospital[facility] Phone Number [employer] MUSE * XR chest 2 views (07/21/2018 5:09 PM AIR BRAKE ADJUSTER) Specimen Narrative Performed At FINAL REPORT [employer] Chest, PA and lateral. History: Edema, dyspnea. Comparison: None available. Discussion:The cardiomediastinal silhouette and pulmonary vasculature are within normal limits. The lungs are clear without evidence of consolidation or effusion.There are no acute osseous abnormalities. The soft tissues are unremarkable. IMPRESSION: No acute cardiopulmonary abnormality. Signed: Mason Collier MD Report Verified Date/Time:07/21/2018 17:13:33 Reading Location: [address] Radiology Reading Room Procedure Note Interface, External Ris In - 07/21/2018 5:15 PM AIR BRAKE ADJUSTER FINAL REPORT Chest, PA and lateral. History: Edema, dyspnea. Comparison: None available. Discussion: The cardiomediastinal silhouette and pulmonary vasculature are within normal limits. The lungs are clear without evidence of consolidation or effusion. There are no acute osseous abnormalities. The soft tissues are unremarkable. IMPRESSION: No acute cardiopulmonary abnormality. Signed: Mason Collier MD Report Verified Date/Time: 07/21/2018 17:13:33 Reading Location: [address] Radiology Reading Room Performing Organization Address [facility] Hospitalcout Phone Number GE [facility]IS * Urinalysis w/Microscopic + Reflex to Culture (07/21/2018 5:00 PM AIR BRAKE ADJUSTER) Color, UA Yellow [facility] [place] Clarity, UA Clear [facility] [place] Specific [place], UA 1.044 (H) 1.001 - 1.[address] [facility] [place] pH, UA 6.5 5.0 - 8.[address] [facility] [place] Protein, UA >600 mg/dL (A) Negative [facility] [place] Glucose, UA Negative Negative [facility] [place] Ketones, UA Negative Negative [facility] [place] Bilirubin, UA Negative Negative [facility] [place] Blood, UA Negative Negative [facility] [place] Nitrite, UA Negative Negative [facility] [place] Leukocytes, UA Negative Negative [facility] [place] Urobilinogen, UA 0.2 0.2 - 1.0 mg/dL [facility] [place] RBC, UA 1 /HPF [facility] [place] WBC, UA 3 /HPF [facility] [place] Mucus Many [facility] [place] Squam Epithel, UA 2 /HPF [facility] [place] Specimen Source [facility] [place] Specimen Urine Performing Organization Address City/State/Zipcode Phone Number [facility] [address] [place] [address] MEDICAL CENTER * CBC with platelet count + automated diff (07/21/2018 5:00 PM AIR BRAKE ADJUSTER) WBC 10.7 (H) 3.5 - 10.5 K/L [facility] [place] RBC 4.56 3.93 - 5.22 M/L [facility] [place] Hemoglobin 13.7 11.2 - 15.7 GM/DL [facility] [place] Hematocrit 41.7 34.1 - 44.9 % [facility] [place] MCV 91.4 79.4 - 94.[address] [facility] [place] MCH 30.0 25.6 - 32.[address] [facility] [place] MCHC 32.9 32.2 - 35.5 GM/DL [facility] [place] RDW 13.1 11.7 - 14.4 % [facility] [place] Platelets 225 150 - 450 K/CU MM [facility] [place] MPV 11.8 9.4 - 12.[address] [facility] [place] nRBC 0 0 - 0 /[address] [facility] % Neutros 67 % [facility] % Lymphs 25 % [facility] % Monos 7 % [facility] % Eos 0 % [facility] [place] % Baso 0 % [facility] # Neutros 7.12 (H) 1.56 - 6.13 K/L [facility] [place] # Lymphs 2.66 1.18 - 3.74 K/L [facility] [place] # Monos 0.78 (H) 0.24 - 0.36 K/L [facility] [place] # Eos 0.00 (L) 0.04 - 0.36 K/L [facility] [place] # Baso 0.02 0.01 - 0.08 K/L [facility] [place] Immature 1 0 - 1 % [facility] Granulocytes-[facility] Specimen Blood Performing Organization Address City/State/Zipcode Phone Number [address] * Screen, urine (07/21/2018 5:00 PM AIR BRAKE ADJUSTER) Preg Test, Ur Negative [facility] [place] Specimen Urine Performing Organization Address City/[facility]/Zipcode Phone Number [address] * Comprehensive metabolic panel (07/21/2018 5:00 PM AIR BRAKE ADJUSTER) Protein, Total 4.6 (L) 6.0 - 8.3 gm/dL [facility] [place] Albumin 2.0 (L) 3.5 - 5.0 g/dL [facility] [place] Alkaline Phosphatase 75 40 - 150 U/L [facility] [place] Total Bilirubin 0.1 (L) 0.2 - 1.2 mg/dL [facility] [place] Sodium 137 136 - 145 meq/L [facility] [place] Potassium 4.0 3.5 - 5.1 meq/L [facility] [place] Chloride 105 98 - 107 meq/L [facility] [place] CO2 28 22 - 29 meq/L [facility] BUN 14 7 - 21 mg/dL [facility] [place] Creatinine 0.52 (L) 0.57 - 1.25 mg/dL [facility] [place] Glucose 119 (H) 70 - 105 mg/dL [facility] [place] Calcium 8.1 (L) 8.4 - 10.2 mg/dL [facility] [place] AST 24 5 - 34 U/L [facility] [place] ALT 26 6 - 55 U/L [facility] [place] EGFR Comment: INSUFFICIENT CLINICAL mL/min/1.73 sq m [facility] DATA TO CALCULATE ESTIMATED [facility] GFR. Specimen Blood Performing Organization Address City/State/Zipcode Phone Number [facility] [address] [place] [address] [facility] after 04/12/2018 Insurance Payer Benefit Subscriber ID Type Phone Address Plan / Group [facility] HMO/POS CARE POS SELECT CHOICE
== END 2019-04-13 17:42 | disposition short-term general hospital (02) ==
LOC: ER 17:04
DX: R20.2 Paresthesia of skin (principal)

== ENCOUNTER 2019-04-14 12:14 | Emergency (ER) | payer BC ==
[~2019-04-14] VITALS: Ht 147.3 cm; Wt 59.0 kg
--- OUTSIDE RECORDS SUMMARY | 2019-04-14 12:17 | XMS REPORT | Clinical Summary ---
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 Name Role Phone Lou Hendrix MD PCP [...] infection or necrosis, unspecified pancreatitis type 08/15/2018 [facility] General Internal Medicine - Encounter 08/22/2018 after 04/13/2018 Social History Date Tobacco Use Types Packs/Day [...] Comments Vital Sign 101/58 08/22/2018 4:19 PM PUBLIC AREA ATTENDANT Blood Pressure 75 08/22/2018 4:19 PM PUBLIC AREA ATTENDANT Pulse 35.6 C (96 F) 08/22/2018 4:19 PM PUBLIC AREA ATTENDANT Temperature 16 08/22/2018 4:19 PM PUBLIC AREA ATTENDANT Respiratory Rate 95% 08/22/2018 4:19 PM PUBLIC AREA ATTENDANT Oxygen Saturation - - Inhaled Oxygen Concentration 66.7 kg (147 lb) 08/16/2018 7:45 PM PUBLIC AREA ATTENDANT Weight 144.8 cm (4' 9") 08/16/2018 7:45 PM PUBLIC AREA ATTENDANT Height 31.81 08/16/2018 7:45 PM PUBLIC AREA ATTENDANT Body Mass Index Plan of Treatment Health Maintenance Due Date Last Done Comments CHLAMYDIA SCREENING 2012 CERVICAL CANCER SCREENING 2017 INFLUENZA VACCINE 03/09/2019 Procedures Comments Procedure Name Priority Date/Time Associated Diagnosis PROTEIN, URINE, RANDOM Routine 08/22/2018 3:48 PM PUBLIC AREA ATTENDANT CREATININE LEVEL, URINE, Routine 08/22/2018 RANDOM 3:48 PM PUBLIC AREA ATTENDANT ESTIMATED GFR Routine 08/22/2018 5:42 AM PUBLIC AREA ATTENDANT PHOSPHORUS LEVEL Routine 08/22/2018 5:42 AM PUBLIC AREA ATTENDANT MAGNESIUM LEVEL Routine 08/22/2018 5:42 AM PUBLIC AREA ATTENDANT HC COMPLETE BLD COUNT Routine 08/22/2018 W/AUTO DIFF 5:42 AM PUBLIC AREA ATTENDANT BASIC METABOLIC PANEL Routine 08/22/2018 5:42 AM PUBLIC AREA ATTENDANT US NEEDLE BIOPSY Routine 08/19/2018 12:01 PM PUBLIC AREA ATTENDANT SURGICAL PATHOLOGY Routine 08/19/2018 REQUEST 11:20 AM PUBLIC AREA ATTENDANT ESTIMATED GFR Routine 08/19/2018 4:56 AM PUBLIC AREA ATTENDANT BASIC METABOLIC PANEL Routine 08/19/2018 4:56 AM PUBLIC AREA ATTENDANT HC COMPLETE BLD COUNT Routine 08/19/2018 W/AUTO DIFF 4:56 AM PUBLIC AREA ATTENDANT PROTHROMBIN TIME WITH INR Routine 08/19/2018 4:56 AM PUBLIC AREA ATTENDANT PARTIAL THROMBOPLASTIN Routine 08/19/2018 TIME (PTT) 4:56 AM PUBLIC AREA ATTENDANT SURGICAL PATHOLOGY Routine 08/18/2018 REQUEST 2:06 PM PUBLIC AREA ATTENDANT ESOPHAGOGASTRODUODENOSCOP 08/18/2018 ABDOMINAL PAIN Y (EGD) 2:02 PM PUBLIC AREA ATTENDANT ESTIMATED GFR Routine 08/18/2018 4:24 AM PUBLIC AREA ATTENDANT LIPASE LEVEL Routine 08/18/2018 4:24 AM PUBLIC AREA ATTENDANT HC COMPLETE BLD COUNT Routine 08/18/2018 W/AUTO DIFF 4:24 AM PUBLIC AREA ATTENDANT COMPREHENSIVE METABOLIC Routine 08/18/2018 PANEL 4:24 AM PUBLIC AREA ATTENDANT PROTEIN, URINE, RANDOM Routine 08/17/2018 9:52 AM PUBLIC AREA ATTENDANT CREATININE LEVEL, URINE, Routine 08/17/2018 RANDOM 9:52 AM PUBLIC AREA ATTENDANT SODIUM LEVEL, URINE, Routine 08/17/2018 RANDOM 9:52 AM PUBLIC AREA ATTENDANT ESTIMATED GFR Routine 08/17/2018 6:12 AM PUBLIC AREA ATTENDANT LIPASE LEVEL Routine 08/17/2018 6:12 AM PUBLIC AREA ATTENDANT HC COMPLETE BLD COUNT Routine 08/17/2018 W/AUTO DIFF 6:12 AM PUBLIC AREA ATTENDANT COMPREHENSIVE METABOLIC Routine 08/17/2018 PANEL 6:12 AM PUBLIC AREA ATTENDANT US ABDOMEN COMPLETE Routine 08/17/2018 6:01 AM PUBLIC AREA ATTENDANT ECG ED PRELIMINARY Routine 08/16/2018 INTERPRETATION 11:31 PM PUBLIC AREA ATTENDANT US RENAL Routine 08/16/2018 4:44 PM PUBLIC AREA ATTENDANT DNA AB SCREEN Routine 08/16/2018 11:34 AM PUBLIC AREA ATTENDANT COMPLEMENT ACTIVITY, Routine 08/16/2018 TOTAL 11:34 AM PUBLIC AREA ATTENDANT C4 COMPLEMENT COMPONENT Routine 08/16/2018 11:34 AM PUBLIC AREA ATTENDANT C3 COMPLEMENT COMPONENT Routine 08/16/2018 11:34 AM PUBLIC AREA ATTENDANT ANAMIKA Routine 08/16/2018 11:34 AM PUBLIC AREA ATTENDANT PARTIAL THROMBOPLASTIN Routine 08/16/2018 TIME (PTT) 11:34 AM PUBLIC AREA ATTENDANT PROTHROMBIN TIME WITH INR Routine 08/16/2018 11:34 AM PUBLIC AREA ATTENDANT ESTIMATED GFR Routine 08/16/2018 6:20 AM PUBLIC AREA ATTENDANT COMPREHENSIVE METABOLIC Routine 08/16/2018 PANEL 6:20 AM PUBLIC AREA ATTENDANT HC COMPLETE BLD COUNT Routine 08/16/2018 W/AUTO DIFF 6:20 AM PUBLIC AREA ATTENDANT URINALYSIS SCREEN AND Routine 08/16/2018 MICROSCOPY, WITH REFLEX 12:21 AM PUBLIC AREA ATTENDANT TO CULTURE ECG 12-LEAD STAT 08/15/2018 11:06 PM PUBLIC AREA ATTENDANT LIPID PANEL STAT 08/15/2018 11:00 PM PUBLIC AREA ATTENDANT ESTIMATED GFR STAT 08/15/2018 10:55 PM PUBLIC AREA ATTENDANT LIPASE LEVEL STAT 08/15/2018 10:55 PM PUBLIC AREA ATTENDANT HCG QUALITATIVE, SERUM STAT 08/15/2018 SCREEN 10:55 PM PUBLIC AREA ATTENDANT B NATRIURETIC PEPTIDE STAT 08/15/2018 10:55 PM PUBLIC AREA ATTENDANT TROPONIN STAT 08/15/2018 10:55 PM PUBLIC AREA ATTENDANT CREATINE KINASE, TOTAL STAT 08/15/2018 (CPK) 10:55 PM PUBLIC AREA ATTENDANT COMPREHENSIVE METABOLIC STAT 08/15/2018 PANEL 10:55 PM PUBLIC AREA ATTENDANT HC COMPLETE BLD COUNT STAT 08/15/2018 W/AUTO DIFF 10:55 PM PUBLIC AREA ATTENDANT XR CHEST 1 VW PORTABLE STAT 08/15/2018 10:13 PM PUBLIC AREA ATTENDANT after 04/13/2018 Results * Protein, urine, random (08/22/2018 3:48 PM PUBLIC AREA ATTENDANT) Only the most recent of 2 results within the time period is included. Protein, urine 177 mg/dL [facility] Specimen Urine Performing Organization Address [facility] Phone Number [address] [place] [address] PATHOLOGY AND GENOMIC MEDICINE [address] * Creatinine level, urine, random (08/22/2018 3:48 PM PUBLIC AREA ATTENDANT) Only the most recent of 2 results within the time period is included. Creatinine, 21 mg/dL [facility] urine, [facility] Specimen Urine Performing Organization Address City/[facility] Cent[facility]ode Phone Number [facility] DEPARTMENT [id number] [place] [address] [place] [address] PATHOLOGY AND GENOMIC MEDICINE [address] * Estimated GFR (08/22/2018 5:42 AM PUBLIC AREA ATTENDANT) Only the most recent of 6 results within the time period is included. Pathologist [facility] Estimated GFR >=90 mL/min/1.73 m2 [facility] Comment: [facility] rpretation G1 >=90 Normal or high G2 60-89Mildly decreased [id number] Mildly to moderately decreased [id number] Moderately to severely decreased G4 15-29Severely decreased G5 <15Kidney failure The eGFR was calculated using the Chronic Kidney Disease Epidemiology Collaboration (CKD-EPI) equation. Interpretation is based on recommendations of the National Kidney Foundation-Kidney Disease Outcomes Quality Initiative (NKF-KDOQI) published in 2014. Specimen Plasma specimen Performing Organization Address City/State/Zipcode Phone Number [facility] DEPARTMENT [place] [id number] [place] [address] [place] [address] PATHOLOGY AND GENOMIC MEDICINE [facility] [address] [place] [address] * CBC with platelet and differential (08/22/2018 5:42 AM PUBLIC AREA ATTENDANT) Only the most recent of 6 results within the time period is included. Pathologist [facility] WBC 11.72 (H) 4.50 - 11.00 k/uL [facility] RBC 4.06 (L) 4.20 - 5.50 m/uL [facility] HGB 12.3 12.0 - 16.0 g/dL [facility] HCT 36.4 (L) 37.0 - 47.0 % [facility] MCV 89.7 82.0 - 100.0 fL [facility] MCH 30.3 27.0 - 34.0 pg [facility] MCHC 33.8 31.0 - 37.0 g/dL [facility] RDW - SD 40.4 37.0 - 55.0 fL [facility] MPV 11.3 8.8 - 13.2 fL [facility] Platelet count 303 150 - 400 k/uL [facility] Nucleated RBC 0.00 /100 WBC [facility] Neutrophils 45.9 39.0 - 69.0 % [facility] Lymphocytes 46.2 (H) 25.0 - 45.0 % [facility] Monocytes 6.1 0.0 - 10.0 % [facility] Eosinophils 1.2 0.0 - 5.0 % [facility] Basophils 0.3 0.0 - 1.0 % [facility] Specimen Blood Performing Organization Address [facility] Cent[facility]ode Phone Number [address] [place] [address] PATHOLOGY AND [facility] MEDICINE [address] * Phosphorus level (08/22/2018 5:42 AM PUBLIC AREA ATTENDANT) Pathologist [facility] Phosphorus 3.0 2.4 - 4.5 mg/dL [facility] Specimen Plasma specimen Performing Organization Address [facility] Phone Number [address] [place] [address] PATHOLOGY AND GENOMIC MEDICINE [address] * Magnesium level (08/22/2018 5:42 AM PUBLIC AREA ATTENDANT) Magnesium 1.7 1.6 - 2.6 mg/dL [facility] Specimen Plasma specimen Performing Organization Address [facility] Phone Number [address] [place] [address] PATHOLOGY AND [facility] MEDICINE [address] * Basic metabolic panel (08/22/2018 5:42 AM PUBLIC AREA ATTENDANT) Only the most recent of 2 results within the time period is included. Sodium 136 135 - 148 mEq/L [facility] Potassium 3.1 (L) 3.5 - 5.0 mEq/L [facility] Chloride 98 98 - 112 mEq/L [facility] CO2 33 (H) 24 - 31 mEq/L [facility] Anion gap 5@ANIO (L) 7 - 15 mEq/L [facility] BUN 14 6 - 20 mg/dL [facility] Creatinine 0.60 0.50 - 0.90 mg/dL [facility] Glucose 92 65 - 99 mg/dL [facility] Calcium 8.1 (L) 8.3 - 10.2 mg/dL [facility] Specimen Plasma specimen Performing Organization Address City/State/Zipcode [place] [address] [place] [address] PATHOLOGY AND GENOMIC MEDICINE [facility] [address] [place] [address] [facility] * US Needle Biopsy (08/19/2018 12:01 PM PUBLIC AREA ATTENDANT) Specimen Narrative Performed At EXAMINATION:US NEEDLE BIOPSY [...] medical right renal biopsy under ultrasound guidance. [id number] Procedure Note Hm Interface, Radiology Results Incoming - 08/19/2018 12:23 PM PUBLIC AREA ATTENDANT EXAMINATION: US NEEDLE BIOPSY CLINICAL HISTORY: Nephrotic [...] medical right renal biopsy under ultrasound guidance. [id number] Performing Organization Address City/State/Zipcode Phone Number [facility] [address] [place] [id number] * Surgical pathology request (08/19/2018 11:20 AM PUBLIC AREA ATTENDANT) Only the most recent of 2 results within the time period is included. [facility] DEPARTMENT OF PATHOLOGY AND GENOMIC MEDICINE Surgical See link below for PDF Lab [facility] pathology Report DEPARTMENT OF report PATHOLOGY AND GENOMIC MEDICINE Result status This is Final Report for [facility] [id number] DEPARTMENT OF PATHOLOGY AND GENOMIC MEDICINE Specimen Performing Organization Address [facility] Phone Number [address] [place] [address] PATHOLOGY AND [facility] * Partial thromboplastin time, activated (08/19/2018 4:56 AM PUBLIC AREA ATTENDANT) Only the most recent of 2 results within the time period is included. Pathologist [facility] PTT 30.6 23.0 - 36.0 sec [facility] Comment: JENN NGUYEN PTT therapeutic range for [facility] unfractionated heparin is 61.0-112.0 seconds which corresponds to Anti-Xa 0.3-0.7 U/ml. Specimen Blood Performing Organization Address [facility] Phone Number [address] [place] * Prothrombin time with INR (08/19/2018 4:56 AM PUBLIC AREA ATTENDANT) Only the most recent of 2 results within the time period is included. Pathologist [facility] Prothrombin 13.1 11.5 - 14.5 sec [facility] INR 1.0 [facility] Comment: JENN NGUYEN The International Normalized [facility] Ratio (INR) is a therapeutic monitoring tool for patients who are stable on oral anticoagulant therapy. An INR of 2.0-3.0 is suggested for deep vein thrombosis/pulmonary embolism. Specimen Blood Performing Organization Address [facility] Phone Number [facility] DEPARTMENT [address] [place] [address] PATHOLOGY AND GENOMIC MEDICINE [facility] [address] [place] [address] * Lipase level (08/18/2018 4:24 AM PUBLIC AREA ATTENDANT) Only the most recent of 3 results within the time period is included. [facility] Lipase 88 (H) 13 - 60 U/L [facility] Specimen Plasma specimen Performing Organization Address City/State/Zipcode Phone Number [facility] [address] [place] [address] PATHOLOGY AND GENOMIC MEDICINE [address] * Comprehensive metabolic panel (08/18/2018 4:24 AM PUBLIC AREA ATTENDANT) Only the most recent of 4 results within the time period is included. [facility] Sodium 135 135 - 148 mEq/L [facility] Potassium 3.6 3.5 - 5.0 mEq/L [facility] Chloride 100 98 - 112 mEq/L [facility] CO2 29 24 - 31 mEq/L [facility] Anion gap 6@ANIO (L) 7 - 15 mEq/L [facility] BUN 26 (H) 6 - 20 mg/dL [facility] Creatinine 0.50 0.50 - 0.90 mg/dL [facility] Glucose 101 (H) 65 - 99 mg/dL [facility] Calcium 7.8 (L) 8.3 - 10.2 mg/dL [facility] Protein 4.1 (L) 6.3 - 8.3 g/dL [facility] Comment: [facility] 4.6-7.0 g/dL 1 week 4.4-7.6 g/dL 7 months-1year 5.1-7.3 g/dL 1-2 years5.6-7 .5 g/dL >3 years6.0-8 .0 g/dL 18-150 6.3-8.3 g/dL Albumin 1.4 (L) 3.5 - 5.0 g/dL [facility] A/G ratio 0.5 (L) 0.7 - 3.8 [facility] Alkaline 63 35 - 104 U/L [facility] phosphatase [facility] AST 14 10 - 35 U/L [facility] ALT 10 5 - 50 U/L [facility] Total bilirubin 0.2 0.0 - 1.2 mg/dL [facility] Specimen Plasma specimen Performing Organization Address City/[facility]n Phone Number [facility] [id number] [place] [address] [place] [address] PATHOLOGY AND GENOMIC MEDICINE [address] * Sodium level, urine, random (08/17/2018 9:52 AM PUBLIC AREA ATTENDANT) Sodium, urine, <20 mEq/L [facility] random [facility] Specimen Urine Performing Organization Address [facility] Phone Number [address] [place] [address] PATHOLOGY AND GENOMIC MEDICINE [address] * US Abdomen Complete (08/17/2018 6:01 AM PUBLIC AREA ATTENDANT) Specimen Narrative Performed At EXAM: US ABDOMEN [...] participate in the care of your patient. [id number] Procedure Note Interface, Radiology Results Incoming - 08/17/2018 7:14 AM PUBLIC AREA ATTENDANT EXAM: US ABDOMEN COMPLETE CLINICAL DATA: Abd [...] participate in the care of your patient. [id number] Performing Organization Address City/State/Zipcode Phone Number [facility] [address] [place] [address] * ECG ED Preliminary Interpretation - Not an Order (08/16/2018 11:31 PM PUBLIC AREA ATTENDANT) Narrative Performed At Eugene Solomon MD 08/18/20187:16 AM ECG ED Preliminary Interpretation - Not an Order Performed by: Pato Yuan NP-C Authorized by: Pato Yuan NP-C ECG reviewed by ED Physician in the absence of a drafter topographical: yes Previous ECG: Previous ECG:Unavailable Interpretation: Interpretation: normal Rate: ECG rate:85 ECG rate assessment: normal Rhythm: Rhythm: sinus rhythm Ectopy: Ectopy: none QRS: QRS axis:Normal QRS intervals:Normal ST segments: ST segments:Normal T waves: T waves: normal * US Renal (08/16/2018 4:44 PM PUBLIC AREA ATTENDANT) Specimen Narrative Performed At EXAMINATION:[facility] CLINICAL HISTORY:Abnormal findings in urine, Proteinuria COMPARISON:None. TECHNIQUE:Ultrasound evaluation of the kidneys and bladder. IMPRESSION: 1.The right kidney measures 10.8 x 5.2 x 5.4 cm.The left kidney measures 12.0 x 6.8 x 5.1 cm.Bilateral increased renal cortical echogenicity is compatible with renal parenchymal disease. 2.No hydronephrosis or solid mass lesions. 3.Bladder is unremarkable. 4.There is a small trace to mild amount of ascites. [facility]-[id number] Procedure Note Interface, Radiology Results Incoming - 08/16/2018 4:55 PM PUBLIC AREA ATTENDANT EXAMINATION: US RENAL CLINICAL HISTORY: Abnormal findings [...] small trace to mild amount of ascites. [facility]-[id number] Performing Organization Address City/[facility]/Zipcode Phone Number [facility] [address] [place] [address] * DNA Ab screen (08/16/2018 11:34 AM PUBLIC AREA ATTENDANT) Pathologist [facility] DNA Ab screen Not Detected Not-Detected [facility] Specimen Blood Performing Organization Address City/State/Zipcode Phone Number [facility] DEPARTMENT OF [address] [place] [address] PATHOLOGY AND GENOMIC MEDICINE [address] * Complement activity, total (08/16/2018 11:34 AM PUBLIC AREA ATTENDANT) Complement 54 (L) 60 - 144 [facility] activity, total Comment: If low CH50 value is unexpected or does not correlate with the patient's clinical condition, repeat analysis with a fresh frozen serum sample is suggested for verification. INTERPRETIVE INFORMATION: Complement Activity, Total EIA 59 CAEUnits or less .......... Low 60-144CAE Units .............. Normal 145 Units or greater ....... High Performed by [employer], [address] [place] [address] [email or web address], Haja Carnes MD - Lab. Director Specimen Serum Performing Organization Address [facility] Centercode Phone Number [facility] [address] [place] [address] [facility] [address] [place] [id number] * C3 complement component (08/16/2018 11:34 AM PUBLIC AREA ATTENDANT) [facility] C3 complement 185 (H) 90 - 180 mg/dL [facility] Specimen Plasma specimen Performing Organization Address City/[facility] Cent[facility]ode Phone Number [facility] [place] [address] PATHOLOGY AND [facility]ICINE [address] * C4 complement component (08/16/2018 11:34 AM PUBLIC AREA ATTENDANT) [facility] C4 complement 67 (H) 10 - 40 mg/dL [facility] Specimen Plasma specimen Performing Organization Address [facility] Cent[facility]ode Phone Number [facility] [place] [address] PATHOLOGY AND [facility] [address] * ANAMIKA (08/16/2018 11:34 AM PUBLIC AREA ATTENDANT) [facility] ANAMIKA screen Negative Negative [facility] Specimen Blood Performing Organization Address [facility] Centercode Phone Number [facility] [place] [address] PATHOLOGY AND [facility]ICINE [address] * Urinalysis screen and microscopy, with reflex to culture (08/16/2018 12:21 AM PUBLIC AREA ATTENDANT) Pathologist [facility] Specimen site Clean catch [facility] Color, UA Yellow [facility] Appearance, UA Slightly-Cloudy [facility] Specific 1.033 1.001 - 1.035 [facility] gravity, UA [facility] pH, UA 6.0 5.0 - 8.5 [facility] Protein, UA 3+ (A) Negative [facility] Glucose, UA Negative Negative [facility] Ketones, UA Negative Negative [facility] Bilirubin, UA Negative Negative [facility] Blood, UA Negative Negative [facility] Nitrite, UA Negative Negative [facility] Urobilinogen, Negative <2.0 [facility] Leukocyte Negative Negative [facility] esterase, UA [facility] Epithelial Many /HPF [facility] cells, UA [facility] Round Moderate 0 - 1 /HPF [facility] epithelial [facility]. cells, [facility] WBC, UA 6-10 (H) 0 - 4 /HPF [facility] RBC, UA 0-5 0 - 5 /HPF [facility] Bacteria, UA Trace None seen [facility] Yeast, UA None seen [facility] Yeast with None seen [facility] pseudohyphaeLE [facility] Specimen Urine Performing Organization Address City/State/Zipcode Phone Number [facility] DE[place]MENT [place] [id number] [place] [address] [place] [address] PATHOLOGY AND GENOMIC MEDICINE [facility] [address] [place] [address] [place] [address] [facility] * ECG 12 lead (08/15/2018 11:06 PM PUBLIC AREA ATTENDANT) Ventricular 85 [facility] rate Atrial rate 85 [facility] IL interval 154 [facility] QRSD interval 68 [facility] QT interval 354 [facility] QTC interval 421 [facility] P axis 1 44 [facility] QRS axis 1 61 [facility] T wave axis 12 [facility] MUSE EKG impression Normal sinus [facility] MUSE rhythm-Nonspecific T wave abnormality-Abnormal ECG-No previous ECGs available- Specimen Narrative Performed At Performing Organization Address City/State/Zipcode Phone Number [facility] [address] [place] [address] * Lipid panel (08/15/2018 11:00 PM PUBLIC AREA ATTENDANT) [facility] Cholesterol 480 (H) <200 mg/dL [facility] Triglycerides 415 (A) <150 mg/dL [facility] HDL cholesterol 80 >40 mg/dL [facility] LDL cholesterol 378 (H)Comment: Result <100 mg/dL [facility] obtained by direct LDL [facility] Lipid panel SeeBelow [facility] interpretation Comment: [facility] Total Cholesterol [facility] (mg/dL) <200 Desirable 200-239Borderline -high >=240High [...] Address City/State/Zipcode [place] [address] [place] [address] PATHOLOGY AND GENOMIC MEDICINE [facility] [address] [place] [address] [facility] * Troponin (08/15/2018 10:55 PM PUBLIC AREA ATTENDANT) [facility] Troponin <0.300 0.000 - 0.300 ng/mL [facility] Comment: [facility] 0.30 - 1.49 [facility] ng/mlMay indicate increased risk of acute coronary syndrome. >=1.5 ng/ml Consistent with acute myocardial infarction. The diagnostic value of a single normal or non-diagnostic result is questionable.Serial samples at 2-6 hour intervals are required to rule out acute myocardial injury. Specimen Plasma specimen Performing Organization Address [facility] Centercode Phone Number [facility] DEPARTMENT [address] [place] [address] PATHOLOGY AND GENOMIC MEDICINE [address] * hCG qualitative, serum screen (08/15/2018 10:55 PM PUBLIC AREA ATTENDANT) hCG Negative [facility] qualitative, Comment: [facility] serum lot [id number] [facility] exp. 8-20 control valid Specimen Blood Performing Organization Address [facility] Phone Number [facility] DEPARTMENT [address] [place] [address] PATHOLOGY AND GENOMIC MEDICINE [address] * B natriuretic peptide (08/15/2018 10:55 PM PUBLIC AREA ATTENDANT) Pathologist [facility] BNP 7 0 - 100 pg/mL [facility] Specimen Blood Performing Organization Address [facility] Phone Number [address] [place] [address] PATHOLOGY AND GENOMIC MEDICINE [address] * Creatine kinase, total (CPK) (08/15/2018 10:55 PM PUBLIC AREA ATTENDANT) Creatine kinase 78 26 - 192 U/L [facility] Specimen Plasma specimen Performing Organization Address [facility] Phone Number [address] [place] [address] PATHOLOGY AND GENOMIC MEDICINE [address] * XR Chest 1 Vw Portable (08/15/2018 10:13 PM PUBLIC AREA ATTENDANT) Specimen Narrative Performed At EXAMINATION:XR CHEST 1 VW PORTABLE RADIANT CLINICAL HISTORY:chest pain COMPARISON:None IMPRESSION: 1.Lungs are clear and the heart size is normal. 2.The vessels are not congested. There are no pleural effusions. [id number] Procedure Note Hm Interface, Radiology Results Incoming - 08/15/2018 10:28 PM PUBLIC AREA ATTENDANT EXAMINATION: XR CHEST 1 VW PORTABLE CLINICAL HISTORY: chest pain COMPARISON: None IMPRESSION: 1. Lungs are clear and the heart size is normal. 2. The vessels are not congested. There are no pleural effusions. [id number] Performing Organization Address City/State/Zipcode Phone Number AMBER MAGA[address]A [address] [place] [address] after 04/13/2018 Insurance Type Payer Benefit Subscriber ID Effective Phone Address Plan / Dates Group HMO/PPO [facility] xxxxxxxxx [id number] THCARE resent CHOICE/CHO ICE + Advance Directives For more information, please contact: [phone] Patient Clean Up Supervisor Explanation Type Date Recorded Advance Directives, Living Will and Medical Power of Process Coordinator
--- OUTSIDE RECORDS SUMMARY | 2019-04-14 12:17 | XMS REPORT | Clinical Summary ---
Author Author DAYANARA [employer] Dynamics[facility] Address Unknown Phone Unavailable Care Team Providers Care Senior Integration Architect Name Role Phone Lou Hendrix Bravosunday PCP Allergies Comments Active Allergy Reactions Severity Noted Date Cephalosporins 07/21/2018 Furosemide Swelling 07/21/2018 Penicillins 07/21/2018 Medications Not on file Active Problems Not on file Encounters Care Team Description Date Type Specialty Rj Urena MD Edema, unspecified type (Primary Dx); Nephrotic syndrome; Hypoalbuminemia 07/21/2018 Emergency Emergency Medicine 07/21/2018 Orders Only General Internal Medicine after 04/13/2018 Social History Date Tobacco Use Types Packs/Day Years Used Never Assessed Sex Assigned at Date Recorded Not on file Industry Job Start Date Occupation Not on file Not on file Not on file Travel End Travel History Travel Start No recent travel history available. Last Filed Vital Signs Time Taken Vital Sign Reading 07/21/2018 8:04 PM METER READING CLERK Blood Pressure 100/51 07/21/2018 8:04 PM METER READING CLERK Pulse 83 07/21/2018 8:04 PM METER READING CLERK Temperature 37 C (98.6 F) 07/21/2018 8:04 PM METER READING CLERK Respiratory Rate 16 07/21/2018 5:32 PM METER READING CLERK Oxygen Saturation 99% - Inhaled Oxygen - Concentration 07/21/2018 3:06 PM METER READING CLERK Weight 62.1 kg (137 lb) 07/21/2018 3:06 PM METER READING CLERK Height 147.3 cm (4' 10") 07/21/2018 3:06 PM METER READING CLERK Body Mass Index 28.63 Plan of Treatment Not on file Procedures Comments Procedure Name Priority Date/Time Associated Diagnosis REPORT OF PROCEDURE - 10/07/2018 ENDOSCOPY SCAN 3:33 PM METER READING CLERK ECG 12-LEAD Routine 07/21/2018 5:31 PM METER READING CLERK Procedure Note - Interface, External Ris In - 07/21/2018 9:25 PM METER READING CLERK Ventricula r Rate 81 BPM Atrial Rate 81 BPM P-R Interval 148 ms QRS Duration 80 ms Q-T Interval 340 ms QTC Calculatio n(Bazett) 394 ms P [place] 66 degrees R [place] 86 degrees T [place] 39 degrees Normal sinus rhythm Normal ECG No previous ECGs available ECG 12-LEAD STAT 07/21/2018 5:31 PM METER READING CLERK XR CHEST 2 VIEWS STAT 07/21/2018 5:09 PM METER READING CLERK CBC W/PLT COUNT & AUTO STAT 07/21/2018 DIFFERENTIAL 5:00 PM METER READING CLERK SCREEN, URINE STAT 07/21/2018 5:00 PM METER READING CLERK URINALYSIS W/ REFLEX STAT 07/21/2018 URINE CULTURE 5:00 PM METER READING CLERK COMPREHENSIVE METABOLIC STAT 07/21/2018 PANEL 5:00 PM METER READING CLERK CBC W/PLT COUNT & AUTO STAT 07/21/2018 DIFFERENTIAL 5:00 PM METER READING CLERK after 04/13/2018 Results * EKG-SCANNED (10/07/2018 3:33 PM METER READING CLERK) Narrative Performed At * ECG 12 lead (07/21/2018 5:31 PM METER READING CLERK) Specimen Narrative Performed At Ventricular Rate 81 BPM GE MUSE Atrial Rate 81 BPM P-R Interval 148 ms QRS Duration 80 ms Q-T Interval 340 ms QTC Calculation(Bazett) 394 ms P [place] 66 degrees R [place] 86 degrees T [place] 39 degrees Normal sinus rhythm Normal ECG No previous ECGs available Confirmed by Saira WADSWORTH MICHAEL ([id number]) on 07/22/2018 7:30:16 AM Procedure Note Interface, External Ris In - 07/22/2018 7:30 AM METER READING CLERK Ventricular Rate 81 BPM Atrial Rate 81 BPM P-R Interval 148 ms QRS Duration 80 ms Q-T Interval 340 ms QTC Calculation(Bazett) 394 ms P [place] 66 degrees R [place] 86 degrees T [place] 39 degrees Normal sinus rhythm Normal ECG No previous ECGs available Confirmed by Saira WADSWORTH MICHAEL ([id number]) on 07/22/2018 7:30:16 AM Performing Organization Address [facility] Phone Number [employer] MUSE * XR chest 2 views (07/21/2018 5:09 PM METER READING CLERK) Specimen Narrative Performed At FINAL REPORT ClassPass Chest, PA and lateral. History: Edema, dyspnea. Comparison: None available. Discussion:The cardiomediastinal silhouette and pulmonary vasculature are within normal limits. The lungs are clear without evidence of consolidation or effusion.There are no acute osseous abnormalities. The soft tissues are unremarkable. IMPRESSION: No acute cardiopulmonary abnormality. Signed: Mason Collier MD Report Verified Date/Time:07/21/2018 17:13:33 Reading Location: [address] Radiology Reading Room Procedure Note Interface, External Ris In - 07/21/2018 5:15 PM METER READING CLERK FINAL REPORT Chest, PA and lateral. History: Edema, dyspnea. Comparison: None available. Discussion: The cardiomediastinal silhouette and pulmonary vasculature are within normal limits. The lungs are clear without evidence of consolidation or effusion. There are no acute osseous abnormalities. The soft tissues are unremarkable. IMPRESSION: No acute cardiopulmonary abnormality. Signed: Mason Collier MD Report Verified Date/Time: 07/21/2018 17:13:33 Reading Location: [address] Radiology Reading Room Performing Organization Address [facility] Phone Number GE RIS * Urinalysis w/Microscopic + Reflex to Culture (07/21/2018 5:00 PM METER READING CLERK) Color, UA Yellow [facility] Clarity, UA Clear [facility] Specific [place], UA 1.044 (H) 1.001 - 1.035 [facility] pH, UA 6.5 5.0 - 8.0 [facility] Protein, UA >600 mg/dL (A) Negative [facility] Glucose, UA Negative Negative [facility] Ketones, UA Negative Negative [facility] Bilirubin, UA Negative Negative [facility] Blood, UA Negative Negative [facility] Nitrite, UA Negative Negative [facility] Leukocytes, UA Negative Negative [facility] Urobilinogen, UA 0.2 0.2 - 1.0 mg/dL [facility] RBC, UA 1 /HPF [facility] WBC, UA 3 /HPF [facility] Mucus Many [facility] Squam Epithel, UA 2 /HPF [facility] Specimen Source [facility] Specimen Urine Performing Organization Address City/State/Zipcode Phone Number [facility] [address] [place] [address] MEDICAL CENTER * CBC with platelet count + automated diff (07/21/2018 5:00 PM METER READING CLERK) WBC 10.7 (H) 3.5 - 10.5 K/L [facility] RBC 4.56 3.93 - 5.22 M/L [facility] Hemoglobin 13.7 11.2 - 15.7 GM/DL [facility] Hematocrit 41.7 34.1 - 44.9 % [facility] MCV 91.4 79.4 - 94.8 fL [facility] MCH 30.0 25.6 - 32.2 pg [facility] MCHC 32.9 32.2 - 35.5 GM/DL [facility] RDW 13.1 11.7 - 14.4 % [facility] Platelets 225 150 - 450 K/CU MM [facility] MPV 11.8 9.4 - 12.3 fL [facility] nRBC 0 0 - 0 /100 WBC [facility] % Neutros 67 % [facility] % Lymphs 25 % [facility] % Monos 7 % [facility] % Eos 0 % [facility] % Baso 0 % [facility] # Neutros 7.12 (H) 1.56 - 6.13 K/L [facility] # Lymphs 2.66 1.18 - 3.74 K/L [facility] # Monos 0.78 (H) 0.24 - 0.36 K/L [facility] # Eos 0.00 (L) 0.04 - 0.36 K/L [facility] # Baso 0.02 0.01 - 0.08 K/L [facility] Immature 1 0 - 1 % [facility] Granulocytes-[facility] Specimen Blood Performing Organization Address City/State/Zipcode Phone Number [address] * Screen, urine (07/21/2018 5:00 PM METER READING CLERK) Preg Test, Ur Negative [facility] Specimen Urine Performing Organization Address City/[facility]/Zipcode Phone Number [address] * Comprehensive metabolic panel (07/21/2018 5:00 PM METER READING CLERK) Protein, Total 4.6 (L) 6.0 - 8.3 gm/dL [facility] Albumin 2.0 (L) 3.5 - 5.0 g/dL [facility] Alkaline Phosphatase 75 40 - 150 U/L [facility] Total Bilirubin 0.1 (L) 0.2 - 1.2 mg/dL [facility] Sodium 137 136 - 145 meq/L [facility] Potassium 4.0 3.5 - 5.1 meq/L [facility] Chloride 105 98 - 107 meq/L [facility] CO2 28 22 - 29 meq/L [facility] BUN 14 7 - 21 mg/dL [facility] Creatinine 0.52 (L) 0.57 - 1.25 mg/dL [facility] Glucose 119 (H) 70 - 105 mg/dL [facility] Calcium 8.1 (L) 8.4 - 10.2 mg/dL [facility] AST 24 5 - 34 U/L [facility] ALT 26 6 - 55 U/L [facility] EGFR Comment: INSUFFICIENT CLINICAL mL/min/1.73 sq m [facility] DATA TO CALCULATE ESTIMATED [facility] GFR. Specimen Blood Performing Organization Address City/State/Zipcode Phone Number [facility] [address] [place] [address] [facility] CENTER after 04/13/2018 Insurance Payer Benefit Subscriber ID Type Phone Address Plan / Group [facility] H[facility]/POS CARE POS SELECT CHOICE
[2019-04-14] MEDS ORDERED: MECLIZINE HCL 12.5 MG TAB PO ONE (12:30)
[2019-04-14 13:02] LABS: BASOPHILS % 0.3 % (0.0-1.0); EOSINOPHILS # (AUTO) 0.1 (0.0-0.4); EOSINOPHILS % 1.2 % (0.0-6.0); HEMATOCRIT 36.6 % (34.2-44.1); HEMOGLOBIN 12.6 g/dL (12.0-16.0); LYMPHOCYTES # (AUTO) 4.2 (1.0-3.2); MEAN CORPUSCULAR HEMOGLOBIN 29.9 pg (28-32); MEAN CORPUSCULAR HGB CONC 34.4 g/dL (31-35); MEAN CORPUSCULAR VOLUME 86.7 fL (81-99); MONOCYTES # (AUTO) 0.7 (0.2-0.8); MONOCYTES % 6.6 % (4.4-11.3); NEUTROPHILS # (AUTO) 4.9 (2.1-6.9); NEUTROPHILS % 49.4 % (38.7-80.0); PLATELET COUNT 253 x10e3/uL (140-360); RED BLOOD COUNT 4.22 x10e6/uL (3.6-5.1); RED CELL DISTRIBUTION WIDTH 13.2 % (11.7-14.4)
[2019-04-14 13:04] LABS: CLARITY,URINE SL CLOUDY (CLEAR); COLOR,URINE YELLOW (YELLOW)
[2019-04-14 13:05] LABS: BILIRUBIN,URINE NEGATIVE (NEGATIVE); KETONES,URINE NEGATIVE (NEGATIVE); LEUKOCYTE ESTERASE ,URINE NEGATIVE (NEGATIVE); NITRITE,URINE NEGATIVE (NEGATIVE); PROTEIN,URINE DIPSTICK 3+ (NEGATIVE); URINE UROBILINOGEN 0.2 mg/dL (0.2 - 1)
--- NOTE | 2019-04-14 13:13 | Diagnostic Imaging Report ---
EXAMINATION: Head CT HISTORY: Dizziness, vertigo, weakness, facial tingling COMPARISON: None. TECHNIQUE: Multidetector axial images were obtained without contrast from the foramen magnum to the vertex . The images were reconstructed using brain and bone algorithms. Thin section brain images were reformatted into coronal and sagittal planes. Image quality: Motion/streaking artifact limits the evaluation of the skull base and posterior cranial fossa. Dose modulation, iterative reconstruction, and/or weight based adjustment of the mA/kV was utilized to reduce the radiation dose to as low as reasonably achievable. FINDINGS: Parenchyma: 1. No abnormal densities. 2. No mass or hemorrhage. No CT evidence of acute territorial vascular insult. Extra-axial spaces:No abnormal density. No extra-axial fluid collections Brain volume: Normal for age. Ventricles: No hydrocephalus or displacement. Arteries: No density suggestive of thrombus. Dural sinuses: No abnormal density. Extra-axial spaces: No abnormal density. Foramen magnum: No mass, Chiari malformation, or basilar invagination. Sella: No obvious mass. Paranasal/mastoid sinuses: Imaged portions unremarkable. Skull/Scalp: No lytic or blastic lesions. No fractures. IMPRESSION: Normal head CT. Signed by: Dr. Lashell Barton M.D. on 04/14/2019 1:10 PM
[2019-04-14 13:21] LABS: ALANINE AMINOTRANSFERASE 13 IU/L (0-55); ALBUMIN/GLOBULIN RATIO 0.3 (0.8-2.0); ALKALINE PHOSPHATASE 59 IU/L (40-150); ANION GAP 9.9 mmol/L (8-16); BLOOD UREA NITROGEN 12 mg/dL (7-26); BUN/CREATININE RATIO 23 (6-25); CALCIUM 7.9 mg/dL (8.4-10.2); CARBON DIOXIDE 30 mmol/L (22-29); CHLORIDE 98 mmol/L (98-107); CREATININE, SERUM 0.53 mg/dL (0.57-1.11); EST GLOMERULAR FILTRATION RATE > 60 ML/MIN (60-); GLUCOSE 97 mg/dL (74-118); SODIUM 135 mmol/L (136-145)
[2019-04-14 13:25] LABS: BACTERIA,URINE FEW /HPF; EPITHELIAL CELLS,URINE FEW /LPF; RBC,URINE 0-5 /HPF (0-5); WBC,URINE (MAN) 0-5 /HPF (0-5)
[2019-04-14 13:33] LABS: POTASSIUM 2.9 mmol/L (3.5-5.1)
[2019-04-14] MEDS ORDERED: POTASSIUM CHLORIDE 20 MEQ TAB CR PO ONE (13:34)
--- NOTE | 2019-04-14 13:37 | NUR ---
PT STATES SHE HAS HER OWN PRESCRIPTION FOR POTASSIUM AND WOULD RATHER TAKE HER OWN MEDS; NOTIFIED
[2019-04-14 13:41] VITALS: BP 106/74
--- NOTE | 2019-04-14 13:46 | Diagnostic Imaging Report ---
EXAMINATION: CHEST 2 VIEWS INDICATION: Dizziness COMPARISON: None FINDINGS: LINES/TUBES:None LUNGS:The lungs are well-inflated. No focal consolidation or pulmonary edema. PLEURA:No pleural effusion or pneumothorax. MEDIASTINUM:The cardiomediastinal silhouette appears normal in size and shape. BONES/SOFT TISSUES:No acute osseous injury. ABDOMEN:No free air under the diaphragm. IMPRESSION: No focal pneumonia or pulmonary edema. Signed by: Darcie Gerber MD on 04/14/2019 1:43 PM
[2019-04-14 14:13] LABS: PREGNANCY TEST, URINE NEGATIVE (NEGATIVE)
== END 2019-04-14 13:50 | disposition home or self-care (01) ==
LOC: ER 12:14
DX: R42 Dizziness and giddiness (principal); R11.0 Nausea; E87.6 Hypokalemia; K52.9 Noninfective gastroenteritis and colitis, unspecified
CPT/HCPCS: 36415; 70450; 71046; 80053; 81001; 81025; 85025; 99284; J8597

== ENCOUNTER → 2020-08-16 | Outpatient (CLI) | payer BC, OTHER ==
[~2020-08-16] MED LIST changes: +COVID-19 VACC, MRNA(MODERNA)/PF 100 MCG/0.5 ML VIAL IM ONE
== END ==
LOC: VACCPMC 18:13
DX: Z23 Encounter for immunization (principal); Z20.822 Contact with and (suspected) exposure to COVID-19